=== PATIENT | male | born 1965 | race African-American/Black ===

== ENCOUNTER 2025-08-22 13:32 | Emergency (ER) | payer BC, MEDICAID ==
[~2025-08-22] VITALS: Ht 188 cm; Wt 95.9 kg
[2025-08-22 13:45] VITALS: BP 116/70; TEMP 97.9; O2SAT 98
== END 2025-08-22 14:02 | disposition left against medical advice (07) ==
LOC: ER 13:42
DX: F10.129 Alcohol abuse with intoxication, unspecified (principal); Y90.9 Presence of alcohol in blood, level not specified